=== PATIENT | female | born 1965 | race Caucasian/White ===

== ENCOUNTER 2023-12-06 20:07 | Emergency (ER) | payer MEDICAID ==
[2023-12-06] MEDS: Lisinopril 20 MG Tab PO STA (21:10)
== END 2023-12-06 21:24 | disposition home or self-care (01) ==
LOC: FB.ED 20:07
DX: I10 Essential (primary) hypertension (principal); K21.9 Gastro-esophageal reflux disease without esophagitis; F17.210 Nicotine dependence, cigarettes, uncomplicated; Z88.0 Allergy status to penicillin; Z88.2 Allergy status to sulfonamides; Z79.899 Other long term (current) drug therapy; Z86.16 Personal history of COVID-19
CPT/HCPCS: 99281; A9270

== ENCOUNTER 2023-12-14 17:13 | Emergency (ER) | payer MEDICAID ==
[2023-12-14] MEDS ORDERED: Ketorolac 15 MG/ML SDV IVPUSH ONE (17:57)
[2023-12-14] MEDS ORDERED: Sodium Chloride 0.9% 10 ML Syringe FLUSH PRN (17:57)
[2023-12-14 18:21] LABS: BASOPHILS ABSOLUTE AUTO 0.1 x10-3/uL (0.0-0.1); EOSINOPHILS ABSOLUTE AUTO 0.2 x10-3/uL (0.0-0.8); EOSINOPHILS PERCENT AUTO 3.6 % (0.6-8.1); HEMATOCRIT 36.9 % (34.2-48.2); HEMOGLOBIN 12.4 g/dL (11.4-15.5); LYMPHOCYTES ABSOLUTE AUTO 1.3 x10-3/uL (1.0-4.4); LYMPHOCYTES PERCENT AUTO 21.3 % (18.4-52.1); MEAN CORPUSCULAR HEMOGLOBIN 31.3 pg (23.9-33.9); MEAN CORPUSCULAR HGB CONC 33.5 g/dL (31.9-34.8); MEAN CORPUSCULAR VOLUME 93.5 fL (76.7-100.5); MEAN PLATELET VOLUME 10.1 fL (7.1-12.4); MONOCYTES ABSOLUTE AUTO 0.6 x10-3/uL (0.3-1.0); MONOCYTES PERCENT AUTO 9.7 % (4.4-15.7); NEUTROPHILS ABSOLUTE AUTO 3.8 x10-3/uL (1.5-6.3); NEUTROPHILS PERCENT AUTO 63.4 % (30.8-76.2); PLATELET COUNT,PLT 128 x10(3)uL (151-488); RED BLOOD CELL COUNT 3.95 x10(6)uL (3.60-5.20); RED CELL DISTRIBUTION WIDTH 13.7 % (12.3-16.5)
[2023-12-14 18:24] LABS: BLOOD UREA NITROGEN,BUN 8 mg/dL (7-18); BUN/CREATININE RATIO 8.9 (9-20); CARBON DIOXIDE,CO2 31 mmol/L (21-32); CHLORIDE,CL 107 mmol/L (100-110); CREATININE 0.9 mg/dL (0.55-1.02); ESTIMATED GFR 74 mL/min (>60); GLUCOSE RANDOM 105 mg/dL (80-116); LIPASE 16 U/L (16-77); POTASSIUM,K 3.1 mmol/L (3.5-5.3); SODIUM,NA 142 mmol/L (135-145)
[2023-12-14 18:26] LABS: C-REACTIVE PROTEIN < 0.50 mg/dL (<0.50)
[2023-12-14 18:26] LABS: BILIRUBIN,URINE SMALL (NEGATIVE); GLUCOSE,URINE NORMAL (NORMAL); KETONES,URINE NEGATIVE (NEGATIVE); LEUKOCYTE ESTERASE,URINE MODERATE (NEGATIVE); NITRITE,URINE POSITIVE (NEGATIVE); OCCULT BLOOD,URINE LARGE (NEGATIVE); PROTEIN,URINE 500 mg/dL (NEGATIVE); UROBILINOGEN,URINE 1 mg/dL (NEGATIVE)
[2023-12-14 18:29] LABS: A/G RATIO 0.9; ALANINE AMINOTRANSFERASE,ALT 14 U/L (12-36); ALBUMIN 3.2 g/dL (3.5-5.2); ALKALINE PHOSPHATASE 86 IU/L (56-112); ASPARTATE AMNIOTRANSFERASE,AST 15 IU/L (5-25); BILIRUBIN TOTAL 0.4 mg/dL (0.1-1.3); PROTEIN TOTAL,TP 6.7 g/dL (6.0-8.0)
[2023-12-14] MEDS: Ketorolac 30 MG/ML SDV IVPUSH ONE (18:35)
[2023-12-14] MEDS: Sodium Chloride 0.9% 1,000 ML IV ONE (18:35)
[2023-12-14 18:36] LABS: APPEARANCE,URINE CLOUDY (CLEAR); BACTERIA,URINE MODERATE (NS); CALCIUM OXALATE CRYSTALS,URINE FEW (NS); COLOR,URINE BROWN (YELLOW); RBC,URINE PACKED (0-5); SQUAMOUS EPITHELIAL CELLS,UR FEW (NS,R,O)
[2023-12-14] MEDS: HYDROmorphone 2 MG/ML SDV IVPUSH ONE (19:34)
[2023-12-14] MEDS: Ondansetron 4 MG/2 ML SDV IVPUSH ONE (19:34)
[2023-12-14] MEDS: Tamsulosin 0.4 MG Cap.ER PO ONE (20:07)
[2023-12-14] MEDS: Ciprofloxacin 500 MG Tab PO ONE (20:07)
[2023-12-14] MEDS: Phenazopyridine 95 MG Tab PO SCH (20:07)
[2023-12-14] MEDS: Potassium Chloride 20 MEQ Tab.ER PO ONE (21:09)
[2023-12-14] MEDS: Morphine 2 MG/ML SYRINGE IVPUSH ONE (21:09)
[2023-12-15] MEDS ORDERED: Phenazopyridine 95 MG Tab PO ONE (19:42)
== END 2023-12-14 21:35 | disposition home or self-care (01) ==
LOC: FB.ED 17:13
DX: N13.2 Hydronephrosis with renal and ureteral calculous obstruction (principal); N30.01 Acute cystitis with hematuria; I10 Essential (primary) hypertension; K21.9 Gastro-esophageal reflux disease without esophagitis; F17.210 Nicotine dependence, cigarettes, uncomplicated; Z88.0 Allergy status to penicillin; Z88.2 Allergy status to sulfonamides; Z88.8 Allergy status to other drugs, medicaments and biological substances; Z79.899 Other long term (current) drug therapy; Z86.16 Personal history of COVID-19
CPT/HCPCS: 36415; 74176; 80053; 81001; 83690; 85025; 86140; 87086; 96361; 96374; 96375; 99284; 99284-25; A9270-GY; J1170; J1885; J2270; J2405; J7030